=== PATIENT | male | born 1980 | race American Indian/Alaskan Native ===

== ENCOUNTER 2020-05-29 12:22 | Emergency (ER) | payer SELFPAY ==
[2020-05-29] MEDS ORDERED: LIDOCAINE (1%) 10 MG/1 ML VIAL 20 ML MDV INFILTRATI ONE ×2 (12:39→17:10)
[2020-05-29] MEDS ORDERED: IBUPROFEN 600 MG TAB PO ONE ×2 (12:39→17:10)
[2020-05-29] MEDS ORDERED: SODIUM CHLORIDE 0.9% IRR 500 ML BOTTLE IR ONE (12:39)
[2020-05-29] MEDS ORDERED: NEOMY 3.5 MG/BACIT 400 UNITS/POLY B 5000 UNITS/GM OINT PACKET TP ONE (12:39)
--- NOTE | 2020-05-29 12:39 | Event Note ---
ED Screening Note ED Screening Note: lac l face last tetanus 3 y ago This initial assessment/diagnostic orders/clinical plan/treatment(s) is/are subject to change based on patients health status, clinical progression and re- assessment by fellow clinical providers in the ED. Further treatment and workup at subsequent clinical providers discretion. Patient/guardian urged not to elope from the ED as their condition may be serious if not clinically assessed and managed. Initial orders include: lac repair
--- NOTE | 2020-05-29 17:10 | Emergency Department Report ---
[place] [facility] Chief Complaint: Wound/Laceration Stated Complaint: HEAD INJURY Time Seen by Provider: 05/29/20 12:38 Occurred When: Today Severity: moderate Tetanus Status: Up to Date Laceration Symptoms: Yes Pain, No Foreign Body Sensation, No Numbness, No Weakness Other History: The patient was evaluated in the emergency department for symptoms described in the history of present illness. He/she was evaluated in the context of the global COVID-19 pandemic, which necessitated consideration that the patient might be at risk for infection with the virus that causes COVID-19. Institutional protocols and algorithms that pertain to the evaluation of patients at risk for COVID-19 are in a state of rapid change based on information released by regulatory bodies including the CDC and federal and state organizations. These policies and algorithms were followed during the patient's care in the emergency department. Please note that these policies, procedures and recommendations changed on a rapid basis. 39-year-old - Pakistani male presents to the emergency room for a laceration to the left side of face that happened around 12 PM while he was at work. Patient states he was using a gesture and it loaded and hit him in the face. Patient states that his last tetanus shot was about 3 years ago. Patient denies any past medical history denies any known drug allergies states that he takes vitamins. ED Review of Systems ROS: Stated complaint: HEAD INJURY Other details as noted in HPI ED Past Medical Hx - Past Medical History Previous Medical History?: No - Surgical History Past Surgical History?: No - Medications Home Medications: Home Medications Medication Instructions Recorded Confirmed Last Taken Type Clindamycin [Clindamycin CAP] 300 mg PO Q8H 7 Days #21 cap 05/29/20 Unknown Rx Laceration Physical Exam - Exam General: Vital signs noted. No distress. Alert and acting appropriately. Wound Length (cm): 5 Laceration Location: Other (Left side of face) Laceration Exam: Yes Normal Distal CMS, No Foreign Body, No Exposed Tendon, Vessel, or Nerve, No Tendon Injury ED Course Vital Signs 05/29/20 12:27 Temperature 98.4 F Pulse Rate 74 Respiratory 16 Rate Blood Pressure 132/92 O2 Sat by Pulse 99 Oximetry ED Medical Decision Making - Medical Decision Making 39-year-old -[place] male presents to the emergency room for a laceration to the left side of face that happened around 12 PM while he was at work. Patient states he was using a gesture and it loaded and hit him in the face. Patient states that his last tetanus shot was about 3 years ago. Patient denies any past medical history denies any known drug allergies states that he takes vitamins. 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 Patient was offered ibuprofen for pain management he declined. States he has tramadol in his truck. Patient will be discharged home on clindamycin he can take his tramadol otherwise in his truck and to return back to the ER for suture removals in 7 to 10 days or follow-up with his primary care provider to have sutures removed. Critical care attestation.: If time is entered above; I have spent that time in minutes in the direct care of this critically ill patient, excluding procedure time. ED Disposition Clinical Impression: Laceration of face Disposition: [id number] TO HOME OR SELFCARE Is pt being admited?: No Does the pt Need Aspirin: No Condition: Stable Instructions: Laceration Care, Adult, [id number] Additional Instructions: Keep sutures clean and dry. Return back in 7 to 10 days to have sutures removed. Complete antibiotics pain medication such as Tylenol or ibuprofen. Prescriptions: Clindamycin [Clindamycin CAP] 300 mg PO Q8H 7 Days #21 cap Referrals: PRIMARY CARE, [Primary Care Provider] - 3-5 Days
[2020-05-29 18:09] VITALS: BP 147/101
== END 2020-05-29 18:09 | disposition home or self-care (01) ==
LOC: ED 12:22
DX: S01.81XA Laceration without foreign body of other part of head, initial encounter (principal); Z79.899 Other long term (current) drug therapy; X58.XXXA Exposure to other specified factors, initial encounter; Y93.89 Activity, other specified; Y92.89 Other specified places as the place of occurrence of the external cause; Y99.8 Other external cause status